=== PATIENT | male | born 2005 | race Caucasian/White ===

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

== ENCOUNTER 2024-10-04 12:34 | Emergency (ER) | payer BC, SELFPAY ==
--- OUTSIDE RECORDS SUMMARY | 2024-10-04 12:36 | XMS_ITS | Clinical Summary ---
Author Organization [facility] Address [address] [place] [id number] Care Team Providers Care Talent Development Manager Name Role Phone Pcp, No Primary Care Provider Unavailabl e Allergies No known active allergies Medications No known medications Active Problems No known active problems Social History Tobacco Use Types Packs/Day Years Used Date Smoking Tobacco: Never Smokeless Tobacco: Never Tobacco Cessation:Counseling Given: Yes Alcohol Use Standard Drinks/Week Comments Yes 0 (1 standard drink = 0.6 oz pur e alcohol) occasionally on a weekend Social Connections Answer Date Recorded Frequency of Communication with Friends and Fami ly Not on file 08/21/2023 Sex and Gender Information Value Date Recorded Sex Assigned at Not on file Legal Sex Male 12:19 PM PULP DRIER FIRER Gender Identity Not on file Sexual Orientation Not on file Obstetrics History Last Filed Vital Signs Vital Sign Reading Time Taken Comments Blood Pressure 117/68 08/21/2023 4:13 PM PULP DRIER FIRER Pulse 56 08/21/2023 4:13 PM PULP DRIER FIRER Temperature 36.6 C (97.8 F) 08/21/2023 4:13 PM PULP DRIER FIRER Respiratory Rate - - Oxygen Saturation 98% 08/21/2023 4:13 PM PULP DRIER FIRER Inhaled Oxygen Concentration - - Weight 73.2 kg (161 lb 6.4 oz) 08/21/2023 4:13 P M PULP DRIER FIRER Height 180.8 cm (5' 11.18) 08/21/2023 4:[address] Body Mass Index 22.4 08/21/2023 4:13 PM PULP DRIER FIRER Plan of Treatment Health Maintenance Due Date Last Done Comments Tdap 2014 Depression screening for age 12+ 2015 HIV for age 15-65 2018 HPV series for age 9-26 (1 - Male 3-dose series) 2018 Hepatitis C screening for ag e 18-79 2021 Tetanus booster 2023 COVID-19 vaccine series ( season) 2024 03/20/2022 BMI (ht and wt on same day) for age 18+ 08/21/2024 08/21/2023 Influenza Vaccine (Season Ended) 2025 Meningococcal series for age 11-21 Aged Out No longer eligible based on patient's age to complete this topic Pneumococcal series for age 6-49 Aged Out No longer eligible based on patient's age to complete this topic Insurance [facility] Care Teams Talent Development Manager Relationship Specialty Start Date End Date Pcp, No . PCP - General 08/21/23
--- OUTSIDE RECORDS SUMMARY | 2024-10-04 12:36 | XMS_ITS | Clinical Summary ---
Author Organization [facility] Address [address] [place] [address] Care Team Providers Care Scientific Associate Name Role Phone Robert Flores MD Primary Care Provider Allergies No known active allergies Medications No known medications Social History Tobacco Use Types Packs/Day Years Used Date Smoking Tobacco: Never Smokeless Tobacco: Never Alcohol Use Standard Drinks/Week Comments No 0 (1 standard drink = 0.6 oz pur e alcohol) Sex and Gender Information Value Date Recorded Sex Assigned at Not on file Legal Sex Male 6:59 PM MDT Gender Identity Not on file Sexual Orientation Not on file Last Filed Vital Signs Vital Sign Reading Time Taken Comments Blood Pressure 114/81 01/18/2017 7:06 PM MDT Pulse 78 01/18/2017 7:06 PM MDT Temperature 37.6 C (99.6 F) 01/18/2017 7:06 PM MDT Respiratory Rate 16 01/18/2017 7:06 PM MDT Oxygen Saturation 95% 01/18/2017 7:06 PM MDT Inhaled Oxygen Concentration - - Weight 54.1 kg (119 lb 3.2 oz) 01/18/2017 7:05 P M MDT Height 172.7 cm (5' 8) 01/18/2017 7:05 PM MDT Body Mass Index 18.12 01/18/2017 7:05 PM MDT Plan of Treatment Health Maintenance Due Date Last Done Comments Hepatitis C Screening 2003 HPV Vaccines (1 - Male 3-dos e series) 2018 MenB Vaccine (1 of 2 - Standard) 2019 Td/Tdap 2021 COVID-19 Vaccine ( - 2023-2 5 season) 2024 Influenza Vaccine (Season Ended) 2025 Meningococcal Vaccine Aged Out No janice leia eligible based on patient's age to complete this topic Pneumococcal Vaccine: Peds a nd At-Risk Patients < 65 Aged Out No longer eligible based on patient's age to complete this topic Insurance [facility] Care Teams Scientific Associate Relationship Specialty Start Date End Date Robert Flores MD PCP - General Pediatrics 01/18/17
--- OUTSIDE RECORDS SUMMARY | 2024-10-04 12:36 | XMS_ITS | Clinical Summary ---
Author Organization [facility] Address [address] [place] [address] [place] [address] Phone Care Team Providers Care Marine Pipe Welder Name Role Phone Robert Flores M.D. Primary Care Provider Un available Source Comments [facility], [place], [place] is fully implemented on [employer]. [facility] Allergies No known active allergies Medications * Be aware that medications may not be up to date as of this document. Always verify current medications with patient. No known medications Active Problems Problem Noted Date Diagnosed Date Molluscum contagiosum 04/01/2012 Surgical History Surgery Date Site/Laterality Comments NEGATIVE SURGICAL HISTORY NO PAST SURGERIES Social History Tobacco Use Types Packs/Day Years Used Date Smoking Tobacco: Never Assessed Community Connections Answer Date Recor ded Caregiver PCP help Not on file 12/24/2018 Child PCP help Not on file 12/24/2018 Potential social isolation Not assesed 12/24 Appointment help Not on file 12/24/2018 Benefits help needed: Not on file 12/24/2018 Education concerns Not assesed 12/24/2018 Tobacco Use Answer Date Recorded Tobacco: Caregiver Use Not on file 9 Tobacco- Patient Use: Unrecognized value 019 Depression risk Answer Date Recorded Caregiver Depression: Not on file 09/26/2019 Caregiver suicidal thoughts: Not on file 09/2019 Last PHQ-2 Not on file 09/26/2019 Last PHQ-9 Not on file 09/26/2019 Last EPDS Not on file 09/26/2019 Last EPDS self harm item: Not on file 2019 Transportation Answer Date Recorded Not on file 07/25/2019 Sex and Gender Information Value Date Recorded Sex Assigned at Not on file Legal Sex Male 12:24 PM MDT Gender Identity Not on file Sexual Orientation Not on file Last Filed Vital Signs Vital Sign Reading Time Taken Comments Blood Pressure 113/73 11/21/2016 5:32 PM MDT Pulse 84 11/21/2016 5:32 PM MDT Temperature 36.4 C (97.5 F) 11/21/2016 5:32 PM MDT Respiratory Rate 24 11/21/2016 5:32 PM MDT Oxygen Saturation 96% 09/21/2013 2:43 PM MDT Inhaled Oxygen Concentration - - Weight 51.4 kg (113 lb 5.1 oz) 11/21/2016 5:29 P M MDT Height 137.6 cm (4' 6.17) 04/01/2012 7:03 AM T Body Mass Index - - Plan of Treatment Not on file Insurance [facility] Care Teams Marine Pipe Welder Relationship Specialty Start Date End Date Robert Flores M.D. PCP - General 04/10/08
--- OUTSIDE RECORDS SUMMARY | 2024-10-04 12:36 | XMS_ITS | Referral Summary ---
Author Organization [facility] Address [address] [place] [address] Care Team Providers Care Pickling Grader Name Role Phone Robert Flores MD Primary [...] 01/18/2017 7:05 PM MDT Plan of Treatment Not on file Insurance [facility] Care Teams Pickling Grader Relationship Specialty Start Date End Date Robert Flores MD PCP - General Pediatrics 01/18/17
--- OUTSIDE RECORDS SUMMARY | 2024-10-04 12:36 | XMS_ITS | Encounter Summary ---
Author Organization [facility] Address [address] [place] [id number] Phone Care Team Providers Care Milk Route Deliverer Name Role Phone Robert Flores M.D. Primary Care Provider Un available Encounter Details Date Type Department Care Team (Late st Contact Info) Description 11/26/2016 Community [place] [address] Robert Flores M.D. Closed dislocation of phalanx of hand, initial encounter (Primary Dx) Social History Tobacco Use Types Packs/Day Years Used Date Smoking Tobacco: Never Assessed Sex and Gender Information Value Date Recorded Sex Assigned at Not on file Legal Sex Male 12:24 PM MDT Gender Identity Not on file Sexual Orientation Not on file documented as of this encounter Plan of Treatment Not on file documented as of this encounter Visit Diagnoses Diagnosis Start Date Status Closed dislocation of phalanx of hand, initial encounter- Primary 11/26/2016 Active documented in this encounter Care Teams Milk Route Deliverer Relationship Specialty Start Date End Date Robert Flores M.D. PCP - General 04/10/08 documented as of this encounter
--- OUTSIDE RECORDS SUMMARY | 2024-10-04 12:36 | XMS_ITS | Continuity of Care Document ---
Author Organization [facility] Address [address] [place] [address] [place] [address] Phone Care Team Providers Care Waterworks Pump Station Operator Name Role Phone Dm Palma MD Unavailable Unavailable Allergies, Adverse Reactions, Alerts Substance Reaction Status Criticality No Known Allergies Active No Inform ation Procedures Procedure Date X-ray/Wrist 2 views Office/outpatient visit, est, exp prob A Office/outpatient visit, est, exp prob J Exos Short Arm Fracture Brace 7 X-ray/Finger(s) Min 2 views Office/outpatient visit, new, expanded p alberto Advance Directives Directive Yes / No Effective Date File Name No Information Encounters Encounter Description Practice Location Reason(s) For Visit Diagnoses Date Provider Providers Copied on Encounter Office/outpa tient visit, est, exp prob [facility], [address], [place], [address], [place] tel:[phone] [facility] Follow Up of left wrist fracture (chief complaint) Buckle fracture of left wrist, closed, initial encounterToru s fracture of left wrist with routine healing, subsequent encounter [address], [place], [place], [id number], [place]. tel:[phone] Referring Provider: mD Palma , [address] [place] [address], [place], [address] . tel:[phone] Office/outpa tient visit, est, exp prob [facility], [address] [place] [address], [place], [address], [place] tel:[phone] [facility] left wrist fracture (chief complaint) Buckle fracture of left wrist, closed, initial encounter [address] [place] [address], [place], [place], [id number], [place]. tel:[phone] Referring Provider: Dm Plama , [address] [place] [address], [place], [address] . tel:[phone] Office/outpa tient visit, new, expanded prob [facility], [address] [place] [address], [place], [address], [place] tel:[phone] [facility] right hand pain (chief complaint) Injury of right little finger, initial encounterFing er dislocation, initial encounter [address], [place], [place], [id number], [place]. tel:[phone] Referring Provider: Dm Palma , [address] [place] [address], [place], [address] . tel:[phone] Family History Family Member Type Diagnosis Age At Onset No Information Payers Payer name Insurance type Covered republican ID Franklyn gurrola(s) [facility] [id number] Social History Type Description Quantity Date Captured Comments Alcohol Use Details No Caffeine Use Details Unknown Tobacco Use Status Current non-smoker 15 Smoking Status Never smoker Non-Smoking Tobacco Use Details : No Details Available : No Details Available Sex Male Vital Signs Date / Time: Height Weight BMI Pulse Rate Blood Pressure Temperature Respiratory Rate Body Surface Area Head Circumference Head Circ. Percentile Wt./Zacarias. Percentile BMI percentile Pulse Ox Inhaled Ox 3:24 PM 63 /min 99/62 mm[Hg] Chief Complaint And Reason For Visit From encounter dated '02/06/2017 15:00'. Follow Up of left wrist fracture (chief complaint) Reason For Referral Reason For Referral No Information Plan Of Treatment Date Type Action Status Referral Ordered: X-ray/Wrist 2 views RT ordered Referral Ordered: X-ray/Finger(s) Min 2 views RT ordered History Of Present Illness Encounter Date Complaint History Of Prese nt Illness Follow Up of left wrist fracture left wrist fracture Onset was on 01/18/2017. Severity level is 3. The problem is improving. Context: sports injury during soccer. Trauma occurred due to direct blow while doing recreational activities. He is also experiencing bruising, decreased mobility and swelling. right hand pain Onset: on 2016. Severity level is 1. The problem is fluctuating. Location: right hand. The pain is dull. Context: there is an injury. Trauma type: bending, occurred doing recreational activities on 11/21/2016. The pain is aggravated by bending and pushing. The pain is relieved by brace/splint. Associated symptoms include bruising, decreased mobility, joint instability and swelling. Additional information: pt c/o right hand/finger pain. pt states they were playing goalie in soccer and landed on their finger on 11/21/16. pain 07/03. Functional Status Date Functional Assessmen t No Information Instructions Date Instruction Additional Infor mation Left distal radius b uckle fracture has healed. I recommend use of the rigid wrist brace for the next 2 weeks during resisted in sports activities but he may remove it for most normal daily activities. Return to clinic when necessary. Related to Torus fracture of left wrist with routine healing, subsequent encounter Suggested education reviewed for Torus fracture of left wrist with routine healing, subsequent encou Related to {fts_soap_.txt_aipd} Left distal radius b uckle fracture. I recommend a custom molded rigid wrist brace with return to clinic in 3 weeks for recheck with new x-rays. Related to Buckle fracture of left wrist, closed, initial encounter Suggested education reviewed for Buckle fracture of left wrist, closed, initial encounter (S62.102A) Related to {fts_soap_.txt_aipd} Right trigger PIP clarissa int dislocation. I recommend salena taping to the ring finger with active motion as tolerated. Salena taping should be performed for the next 3-4 weeks during sporting activities and then may be discontinued. Return when necessary. Related to Finger dislocation, initial encounter Suggested education reviewed for Injury of right little finger, initial encounter (S69.91XA). Related to {fts_soap_.txt_aipd} Suggested education reviewed for Finger dislocation, initial encounter (S63.259A). Related to {fts_soap_.txt_aipd} Assessments Type Assessment Date assessment Buckle fracture of left wrist, solomon tiwari, initial encounter assessment Torus fracture of le ft wrist with routine healing, subsequent encounter Patient Care Teams Name Effective Dates (start - stop) Status Members No Information
[2024-10-04 12:37] VITALS: BP 111/67; PULSE 88; RESP 18; TEMP 37.3; O2SAT 99; BMI 22.3
--- NOTE | 2024-10-04 12:48 | ED_ITS ---
HPI - Extremity Injury (Lower) General Time Seen by Provider: 12:48 Date Seen: 10/04/24 Chief Complaint: Extremity Pain/Injury, Lower Stated Complaint: R ankle injury Time Seen by Provider: 10/04/24 12:36 Source: patient and RN notes reviewed Mode of arrival: ambulatory Limitations: no limitations History of Present Illness HPI Narrative: This 19-year-old male is coming in with an injury to his right ankle. Was playing [employer] ([employer]) when he injured this right ankle. It hurts on the outside of the ankle. No numbness or tingling in the foot or extremity. He has not taken anything, would appreciate something for pain. He does have ibuprofen at home, discussed given him a dose of Tylenol here to start with. Nursing staff applied ice bag, he is elevating this extremity on the bed at this time. He is not sure exactly how this happened, jumped up and when he came down felt the pain. He really has not tried ambulating on it. He is not sure if somebody collided with them, step-down on his ankle, just is not sure how this happened. It hurts on the outside of the ankle. Related Data Home Medications ?Medication ?Instructions ?Recorded ?Confirmed No Known Home Medications 10/04/24 10/04/24 Allergies Allergy/AdvReac Type Severity Reaction Status Date / Time No Known Drug Allergies Allergy Verified 03/21/22 18:52 Review of Systems Narrative: As per HPI. [facility] Medical History Bronchitis ?J40 - Bronchitis, not specified as acute or chronic (ICD-10) No significant past medical history Surgical History Hx of tonsillectomy ?Z90.89 - Acquired absence of other organs (ICD-10) Social History Smoking Status: Never smoker Do you use any of these nicotine containing products: None Second hand tobacco smoke exposure: No How often do you have a drink containing alcohol: 2-3 times a week How often do you have six or more drinks on one occasion: Never AUDIT-C Alcohol total score: 3 Non-prescribed substance use: denies use service: No Exam Const: Vital Signs, click to edit/add: Vital Signs - 24 hr 10/04/24 12:37 Temperature 99.1 F Pulse Rate [Pulse Oximeter] 88 Respiratory Rate 18 Blood Pressure [Le ft Upper Arm] 111/67 Pulse Oximetry 99 Oxygen Delivery Me thod Room Air This 19-year-old male is alert, interactive, no apparent distress. He has obvious swelling over his distal lateral fibula of the right ankle. He is tender over this fibula. The medial malleolus and deltoid ligament are nontender and intact. Anterior mortise is nontender until you get over along the distal fibula area. He has good pulses in his foot, normal sensation of his toes, able to wiggle his toes without any difficulty. Documenting provider has reviewed patient's vital signs: yes Course Course ED Course: Will give patient a dose of acetaminophen a 1000 mg. Will continue to have him ice and elevate. Will get x-rays of his right ankle to rule out fibula fracture distally. Reevaluation(s) Time of Reevaluation #1: 13:20 Reevaluation #1: Reviewed negative x-ray for fracture with patient. He still is really swollen along this distal fibula. He has no recollection somebody actually collided, stepped on this or if he inverted. He just really is not sure as to the mechanism. I did apply Juan wrap for compression. We will see how he does bearing some weight, may need crutches and re-evaluation with Orthopedics if ongoing symptoms. Vital Signs Vital signs: Initial Vital Signs Temperature 99.1 F 10/04/24 12:37 Temperature Source Temporal Artery Scan 10/04/24 12:37 Pulse Rate 88 10/04/24 12:37 Respiratory Rate 18 10/04/24 12:37 Blood Pressure 111/67 10/04/24 12:37 Blood Pressure Mean 81 10/04/24 12:37 Blood Pressure Position Sitting 10/04/24 12:37 Pulse Oximetry 99 10/04/24 12:37 Oxygen Delivery Method Room Air 10/04/24 12:37 Vital Signs Temperature 99.1 F 10/04/24 12:37 Pulse Rate 88 10/04/24 12:37 Respiratory Rate 18 10/04/24 12:37 Blood Pressure 111/67 10/04/24 12:37 Pulse Oximetry 99 10/04/24 12:37 Oxygen Delivery Method Room Air 10/04/24 12:37 Temperature 99.1 F 10/04/24 12:37 Pulse Rate 88 10/04/24 12:37 Respiratory Rate 18 10/04/24 12:37 Blood Pressure 111/67 10/04/24 12:37 Pulse Oximetry 99 10/04/24 12:37 Oxygen Delivery Method Room Air 10/04/24 12:37 Medications Administered Medications: Discontinued Medications Generic Name Dose Route Start Last Admin Trade Name Marion PRN Reason Stop Dose Admin Acetaminophen 1,000 mg 10/04/24 12:51 10/04/24 13:13 Acetaminophen 500 Mg Tablet PO 10/04/24 12:52 1,000 mg ONCE ONE Administration MDM - Extremity Injury (Lower) Imaging Data XR right ankle: Attestation: I have reviewed the pertinent imaging results. My impression: I do not appreciate any fracture on my preliminary review of this ankle x-ray. Radiologist's impression: Patient: DAVION MOON Facility:?[facility] Patient ID:?[id number] Site Patient ID:?[id number]. Site :?[id number] Study:?XRay-Extremity Right 3V RIGHT ANKLE-10/04/2024 1:06:16 PM Ordering Physician:Miranda Lopez Final Report: INDICATION: Playing [employer] and lost balance and was hit by someone or fall on ankle, injury- fall on or hit ankle TECHNIQUE: Ankle radiograph 3 views right COMPARISON: None FINDINGS: Bone: No acute fractures or aggressive bone lesions are identified. Joint: The ankle mortise joint and the visualized hindfoot joints are unremarkable in appearance. No significant ankle effusion is seen. Soft tissue: The Kager fat pad and the Achilles` tendon are normal in appearance. No radiopaque foreign bodies are seen. IMPRESSION: 1. No acute osseous injuries or abnormalities are noted. Dictated by: Wili Nava MD @ 10/04/2024 13:12:16 (Electronic Signature) Discharge Plan Discharge Clinical Impression: Ankle sprain Qualifiers: Encounter type: initial encounter Involved ligament of ankle: unspecified ligament Laterality: right Qualified Code(s): S93.401A - Sprain of unspecified ligament of right ankle, initial encounter Patient Disposition: Home, Self-Care Condition: Stable Instructions: Ankle Sprain (ED) Additional Instructions: Ice elevate, light compression with Juan wrap as much as able to over the next few days to help decrease pain and swelling. Can use Tylenol 1000 mg 3 times a day baseline for pain, supplement with ibuprofen per bottle directions for additional pain control. Use crutches as needed for minimizing weight-bearing on this foot. As the ankle feels better and you are not having pain putting weight on it, can go without crutches. If you are not significantly improving over this next week, do recommend re-evaluation and reimaging with Orthopedics; phone number for the orthopedic office in [facility] is [phone]. Activity Level: Activity as Tolerated Prescriptions: No Action No Known Home Medications Follow Up/Referrals: Provider,Not a Local [Primary Care Provider] - Stand Alone Forms: [employer] Info Instructions
--- NOTE | 2024-10-04 12:50 | CRLHL7_ITS ---
For Patients: As a result of the Century Cures Act, medical imaging exams and procedure reports are released immediately into your electronic medical record. You may view this report before your referring provider. If you have questions, please contact your health care provider. INDICATION: Playing [employer] and lost balance and was hit by someone or fall on ankle, injury- fall on or hit ankle TECHNIQUE: Ankle radiograph 3 views right COMPARISON: None FINDINGS: Bone: No acute fractures or aggressive bone lesions are identified. Joint: The ankle mortise joint and the visualized hindfoot joints are unremarkable in appearance. No significant ankle effusion is seen. Soft tissue: The Kager fat pad and the Achilles` tendon are normal in appearance. No radiopaque foreign bodies are seen. IMPRESSION: 1. No acute osseous injuries or abnormalities are noted. Dictated by: Wili Nava MD @ 10/04/2024 13:12:16 (Electronically Signed)
--- OUTSIDE RECORDS SUMMARY | 2024-10-04 12:58 | XMS_ITS | Continuity of Care Document ---
Author Organization [facility] Address [address] [place] [address] [place] [address] Phone Care Team Providers Care Automotive Collision Estimator Name Role Phone Dm Palma MD Unavailable [...] Sports Med, [address], [place], [address], [place] tel:[phone] [facility] Follow Up of left wrist fracture (chief complaint) Buckle fracture of left wrist, closed, initial encounterToru s fracture of left wrist with routine healing, subsequent encounter [address], [place], [place], [id number], [place]. tel:[phone] Referring Provider: Dm Palma , [address] [place] [address], [place], [address] . tel:[phone] Office/outpa tient visit, est, exp prob [facility], [address] [place] [address], [place], [address], [place] tel:[phone] [facility] left wrist fracture (chief complaint) Buckle fracture of left wrist, closed, initial encounter [address], [place], [place], [id number], [place]. tel:[phone] Referring Provider: Dm Palma , [address], [place], [address] . tel:[phone] Office/outpa tient visit, new, expanded prob [facility], [address] [place] [address], [place], [address], [place] tel:[phone] [facility] right hand pain (chief complaint) Injury of right little finger, initial encounterFing er dislocation, initial encounter [address], [place], [place], [id number], [place]. tel:[phone] Referring Provider: Dm Palma , [address] [place] [address], [place], [address] . tel:[phone] Family History Family Member Type Diagnosis Age At Onset No Information Payers Payer name Insurance type Covered republican ID Franklyn gurrola(s) [facility] [id number] Social History Type Description Quantity Date Captured [...]
--- OUTSIDE RECORDS SUMMARY | 2024-10-04 12:58 | XMS_ITS | Encounter Summary ---
Author Organization Address [address] [place] [address] Phone Care Team Providers Care Electricity Trader Name Role Phone Robert Flores M.D. Primary Care Provider Un available Encounter Details Date Type Department Care Team (Late st Contact Info) Description 11/26/2016 Community [place] [address] Robert Flores M.D. Closed dislocation of phalanx [...] Active documented in this encounter Care Teams Electricity Trader Relationship Specialty Start Date End Date Robert Flores M.D. PCP - General 04/10/08 documented as of this encounter
--- OUTSIDE RECORDS SUMMARY | 2024-10-04 12:58 | XMS_ITS | Clinical Summary ---
Author Organization [facility] Address [address] [place] [address] [place] [address] Phone Care Team Providers Care Truck Driver Instructor Name Role Phone Robert Flores M.D. Primary Care Provider Un available Source Comments [facility], [place], [place] is fully implemented on [employer]. [facility] Allergies No known active allergies Medications * [...] Plan of Treatment Not on file Insurance [facility] Care Teams Truck Driver Instructor Relationship Specialty Start Date End Date Robert Flores M.D. PCP - General 04/10/08
--- OUTSIDE RECORDS SUMMARY | 2024-10-04 12:58 | XMS_ITS | Clinical Summary ---
Author Organization [facility] Address [address] [place] [address] Care Team Providers Care Stained Glass Glazier Name Role Phone Pcp, No Primary Care [...] on file Legal Sex Male 12:19 PM SATURATION DIVER Gender Identity Not on file Sexual Orientation Not on file Obstetrics History Last Filed Vital Signs Vital Sign Reading Time Taken Comments Blood Pressure 117/68 08/21/2023 4:13 PM SATURATION DIVER Pulse 56 08/21/2023 4:13 PM SATURATION DIVER Temperature 36.6 C (97.8 F) 08/21/2023 4:13 PM SATURATION DIVER Respiratory Rate - - Oxygen Saturation 98% 08/21/2023 4:13 PM SATURATION DIVER Inhaled Oxygen Concentration - - Weight 73.2 kg (161 lb 6.4 oz) 08/21/2023 4:13 P M SATURATION DIVER Height 180.8 cm (5' 11.18) 08/21/2023 4:[address] Body Mass Index 22.4 08/21/2023 4:13 PM SATURATION DIVER Plan of Treatment Health Maintenance Due Date [...] patient's age to complete this topic Insurance [facility] Care Teams Stained Glass Glazier Relationship Specialty Start Date End Date Pcp, No . PCP - General 08/21/23
--- OUTSIDE RECORDS SUMMARY | 2024-10-04 12:58 | XMS_ITS | Clinical Summary ---
Author Organization [facility] Address [address] [place] [address] Care Team Providers Care Registered Appraiser Name Role Phone Robert Flores MD Primary [...] patient's age to complete this topic Insurance [facility] Care Teams Registered Appraiser Relationship Specialty Start Date End Date Robert Flores MD PCP - General Pediatrics 01/18/17
--- OUTSIDE RECORDS SUMMARY | 2024-10-04 12:58 | XMS_ITS | Referral Summary ---
Author Organization [facility] Address [address] [place] [address] Care Team Providers Care Bacon Skin Lifter Name Role Phone Robert Flores MD Primary [...] Plan of Treatment Not on file Insurance [place] [id number] Care Teams Bacon Skin Lifter Relationship Specialty Start Date End Date Robert Flores MD PCP - General Pediatrics 01/18/17
[2024-10-04] MEDS: ACETAMINOPHEN 500 MG TABLET 1000 MG PO (13:13)
== END 2024-10-04 13:56 | disposition home or self-care (01) ==
PROVIDERS: Emergency Provider Family Medicine
DX: S93.401A Sprain of unspecified ligament of right ankle, initial encounter (principal); Y93.74 Activity, frisbee
CPT/HCPCS: 73610; 99283; A9270